=== PATIENT | female | born 1945 | race Caucasian/White ===

== ENCOUNTER 2019-12-02 12:44 | Outpatient (CLI) | payer MEDICARE, OTHER | END 2019-12-02 23:59 | disposition home or self-care (01) | LOC: WOUND 12:44 | PROVIDERS: ATTEND Internal Medicine | DX: T81.31XA Disruption of external operation (surgical) wound, not elsewhere classified, initial encounter (principal); C43.72 Malignant melanoma of left lower limb, including hip; I89.0 Lymphedema, not elsewhere classified; E03.9 Hypothyroidism, unspecified; G89.29 Other chronic pain; M41.9 Scoliosis, unspecified; Z91.040 Latex allergy status; Z87.891 Personal history of nicotine dependence; Z90.710 Acquired absence of both cervix and uterus; Y83.8 Other surgical procedures as the cause of abnormal reaction of the patient, or of later complication, without mention of misadventure at the time of the procedure; Y92.238 Other place in hospital as the place of occurrence of the external cause | CPT/HCPCS: 97597; G0463 ==

== ENCOUNTER → 2019-12-09 | Outpatient (CLI) | payer MEDICARE, OTHER | END | disposition home or self-care (01) | LOC: WOUND 10:00 | PROVIDERS: ATTEND Internal Medicine | DX: T81.31XD Disruption of external operation (surgical) wound, not elsewhere classified, subsequent encounter (principal); C43.72 Malignant melanoma of left lower limb, including hip; I89.0 Lymphedema, not elsewhere classified; E03.9 Hypothyroidism, unspecified; G89.29 Other chronic pain; M41.9 Scoliosis, unspecified; Z91.040 Latex allergy status; Z87.891 Personal history of nicotine dependence; Z90.710 Acquired absence of both cervix and uterus; Y83.8 Other surgical procedures as the cause of abnormal reaction of the patient, or of later complication, without mention of misadventure at the time of the procedure | CPT/HCPCS: 97597 ==

== ENCOUNTER → 2019-12-14 | Outpatient (CLI) | payer MEDICARE, OTHER | END | disposition home or self-care (01) | LOC: WOUND 09:37 | PROVIDERS: ATTEND Internal Medicine | DX: T81.31XD Disruption of external operation (surgical) wound, not elsewhere classified, subsequent encounter (principal); C43.72 Malignant melanoma of left lower limb, including hip; I89.0 Lymphedema, not elsewhere classified; E03.9 Hypothyroidism, unspecified; G89.29 Other chronic pain; M41.9 Scoliosis, unspecified; Z91.040 Latex allergy status; Z87.891 Personal history of nicotine dependence; Z90.710 Acquired absence of both cervix and uterus; Y83.8 Other surgical procedures as the cause of abnormal reaction of the patient, or of later complication, without mention of misadventure at the time of the procedure | CPT/HCPCS: 97597 ==

== ENCOUNTER → 2019-12-21 | Outpatient (CLI) | payer MEDICARE, OTHER | END | disposition home or self-care (01) | LOC: WOUND 10:11 | PROVIDERS: ATTEND Internal Medicine | DX: T81.31XD Disruption of external operation (surgical) wound, not elsewhere classified, subsequent encounter (principal); C43.72 Malignant melanoma of left lower limb, including hip; I89.0 Lymphedema, not elsewhere classified; E03.9 Hypothyroidism, unspecified; G89.29 Other chronic pain; M41.9 Scoliosis, unspecified; Z91.040 Latex allergy status; Z87.891 Personal history of nicotine dependence; Z90.710 Acquired absence of both cervix and uterus; Y83.8 Other surgical procedures as the cause of abnormal reaction of the patient, or of later complication, without mention of misadventure at the time of the procedure | CPT/HCPCS: 97597 ==

== ENCOUNTER 2020-01-01 09:52 | Outpatient (CLI) | payer MEDICARE, OTHER | END 2020-01-01 23:59 | disposition home or self-care (01) | LOC: WOUND 09:52 | PROVIDERS: ATTEND Internal Medicine | DX: T81.31XD Disruption of external operation (surgical) wound, not elsewhere classified, subsequent encounter (principal); C43.72 Malignant melanoma of left lower limb, including hip; I89.0 Lymphedema, not elsewhere classified; E03.9 Hypothyroidism, unspecified; G89.29 Other chronic pain; M41.9 Scoliosis, unspecified; Z91.040 Latex allergy status; Z87.891 Personal history of nicotine dependence; Z90.710 Acquired absence of both cervix and uterus; Y83.8 Other surgical procedures as the cause of abnormal reaction of the patient, or of later complication, without mention of misadventure at the time of the procedure | CPT/HCPCS: G0463 ==

== ENCOUNTER → 2020-02-01 | Outpatient (CLI) | payer MEDICARE, OTHER | END | disposition home or self-care (01) | LOC: WOUND 10:08 | PROVIDERS: ATTEND Internal Medicine | DX: T81.31XD Disruption of external operation (surgical) wound, not elsewhere classified, subsequent encounter (principal); C43.72 Malignant melanoma of left lower limb, including hip; I89.0 Lymphedema, not elsewhere classified; E03.9 Hypothyroidism, unspecified; G89.29 Other chronic pain; M41.9 Scoliosis, unspecified; Z91.040 Latex allergy status; Z87.891 Personal history of nicotine dependence; Z90.710 Acquired absence of both cervix and uterus; Z88.2 Allergy status to sulfonamides; Y83.8 Other surgical procedures as the cause of abnormal reaction of the patient, or of later complication, without mention of misadventure at the time of the procedure | CPT/HCPCS: G0463 ==